=== PATIENT | female | born 1995 | race Caucasian/White ===

== ENCOUNTER 2017-01-29 06:29 | Emergency (ER) | payer BC ==
[2017-01-29 06:41] VITALS: BP 118/75; PULSE 103; TEMP 98.4; BMI 26.6
[2017-01-29] MEDS ORDERED: SODIUM CHLORIDE 1,000 ML IV STA (06:43)
[2017-01-29] MEDS ORDERED: KETOROLAC TROMETHAMINE 30 MG/1 ML VIAL IVPUSH ONE (06:44)
[2017-01-29] MEDS ORDERED: DEXAMETHASONE SOD PHOSPHATE 10 MG/1 ML VIAL IVPUSH ONE (06:44)
--- NOTE | 2017-01-29 06:55 | PDOC ---
History of Present Illness - General Chief Complaint: Sore Throat Stated Complaint: WORSENING STREP THROAT Time Seen by Provider: 01/29/17 06:34 - History of Present Illness Initial Comments: 01/29/17 06:48 21 F with h/o asthma and recurrent tonsillitis presents to ER with sore throat, worsening over 3 days. Pt states that she was seen by a doctor in urgent care initially. They did a rapid strep test that was positive and pt was started on Cefdinir yesterday. Pt states that she has taken amoxicillin in the past and did not respond to it, and this is why she was started on Cefdinir. She has taken 2 doses of the Cefdinir so far but states that her symptoms have only gotten worse. She reports worsening pain with swallowing. Denies any fevers. Denies drooling. Denies difficulty breathing. However, she has noted a change in her voice. 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 Pt denies allergy to penicillins or other medications. Past History - Past Medical History Allergies/Adverse Reactions: Allergies Allergy/AdvReac Type Severity Reaction Status Date / Time peanut Allergy Verified 01/29/17 06:43 tree nut Allergy Verified 01/29/17 06:43 Home Medications: Ambulatory Orders Albuterol Sulfate Inhaler - [Ventolin Hfa Inhaler -] 1 - 2 inh PO QID 01/29/17 Cefdinir [Omnicef -] 300 mg PO BID 01/29/17 Fluticasone Propionate [Flovent Diskus] 100 mcg IH DAILY 01/29/17 Asthma: Yes COPD: No - Immunization History Immunization Up to Date: Yes - Suicide/Smoking/Psychosocial Hx Smoking History: Never smoked Number of Cigarettes Smoked Daily: 0 Information on smoking cessation initiated: No Hx Alcohol Use: No Drug/Substance Use Hx: No Substance Use Type: None Review of Systems - Review of Systems Comments:: 01/29/17 06:52 "GENERAL/CONSTITUTIONAL: No fever or chills. No weakness. HEAD, EYES, EARS, NOSE AND THROAT: + sore throat CARDIOVASCULAR: No chest pain or shortness of breath. RESPIRATORY: No cough, wheezing, or hemoptysis. GASTROINTESTINAL: No nausea, vomiting, diarrhea or constipation. GENITOURINARY: No dysuria, frequency, or change in urination. MUSCULOSKELETAL: No joint or muscle swelling or pain. No neck or back pain. SKIN: No rash NEUROLOGIC: No headache, vertigo, loss of consciousness, or change in strength/ sensation. ENDOCRINE: No increased thirst. No abnormal weight change. HEMATOLOGIC/LYMPHATIC: No anemia, easy bleeding, or history of blood clots. ALLERGIC/IMMUNOLOGIC: No hives or skin allergy. " *Physical Exam - Vital Signs Last Vital Signs Temp Pulse Resp BP Pulse Ox 98.4 F 103 H 18 118/75 98 01/29/17 06:34 01/29/17 06:34 01/29/17 06:34 01/29/17 06:34 01/29/17 06:34 - Physical Exam Comments: 01/29/17 06:53 "GENERAL: Awake, alert, and fully oriented, in no acute distress HEAD: No signs of trauma EYES: PERRLA, EOMI, sclera anicteric, conjunctiva clear ENT: + tonsillar exudates with protrusion of bilateral tonsils, L>R, slight uvula deviation to the right, TMs normal inspection, hearing grossly normal, nares patent. NECK: + lymphadenopathy, full range of motion, no stiffness, no trismus LUNGS: Breath sounds equal, clear to auscultation bilaterally. No wheezes, and no crackles HEART: Regular rate and rhythm, normal S1 and S2, no murmurs, rubs or gallops ABDOMEN: Soft, nontender, normoactive bowel sounds. No guarding, no rebound. No masses EXTREMITIES: Normal range of motion, no edema. No clubbing or cyanosis. No cords, erythema, or tenderness NEUROLOGICAL: Cranial nerves II through XII intact. 5/5 strength and sensation in all extremities, Normal speech, normal gait SKIN: Warm, Dry, normal turgor, no rashes or lesions noted. " ED Treatment Course - LABORATORY CBC & Chemistry Diagram: 01/29/17 07:00 01/29/17 07:00 Medical Decision Making - Medical Decision Making 01/29/17 06:55 21 F with strep throat diagnosed 2 days ago, now on cefdinir x 1 day, presenting with worsening throat pain. Exam with slight uvular deviation, possibly representing peritonsillar abscess. Pt has no evidence of airway obstruction at this time, no drooling, no respiratory distress, and is non- toxic appearing. - Labs, cultures - US to evaluate for abscess - IVF, decadron, toradol - IV Unasyn 01/29/17 07:19 Pt signed out to oncoming attending at 7AM, pending labs, US of neck, and potential drainage of [employer]. *DC/Admit/Observation/Transfer Diagnosis at time of Disposition: Acute pharyngitis Qualifiers: Pharyngitis/tonsillitis etiology: unspecified etiology Qualified Code(s): J02.9 - Acute pharyngitis, unspecified - Discharge Dispostion Disposition: HOME Condition at time of disposition: Stable - Referrals - Patient Instructions Printed Discharge Instructions: DI for Pharyngitis/Tonsillopharyngitis -- Adult Additional Instructions: Arrangements have been made for you to see , ENT specialist for further evaluation and treatment immediately. Please go to his office now as directed. He will recommend further antibiotic treatment, possible continuation of steroids, and possible procedure if drainage is necessary. - Post Discharge Activity - Attestations Physician Attestion: 01/29/17 21:54 I, Dr. Saurav Bolanos MD, attest that this document has been prepared under my direction and personally reviewed by me in its entirety. I further attest, that it accurately reflects all work, treatment, procedures and medical decision -making performed by me.
[2017-01-29] MEDS ORDERED: AMPICILLIN NA/SULBACTAM NA 3 GM in SODIUM CHLORIDE 100 ML IVPB ONE (06:58)
[2017-01-29 07:13] LABS: BASOPHIL 0.4 % (0-2.0); EOSINOPHIL 0.1 % (0-4.5); MCH 29.6 pg (25.7-33.7); MCHC 33.4 g/dl (32.0-36.0); MEAN CELL VOLUME 88.8 fl (80-96); MEAN PLT VOLUME 8.2 fl (7.5-11.1); NEUTROPHILS 81.3 % (42.8-82.8); PLATELET COUNT 172 K/MM3 (134-434); RDW 12.1 % (11.6-15.6)
[2017-01-29] MEDS ORDERED: DEXAMETHASONE SOD PHOSPHATE 10 MG/1 ML VIAL ONE (07:33)
[2017-01-29] MEDS ORDERED: AMPICILLIN NA/SULBACTAM NA 3 GM VIAL ONE (07:33)
[2017-01-29] MEDS ORDERED: KETOROLAC TROMETHAMINE 15 MG/ML VIAL ONE (07:33)
[2017-01-29 07:54] LABS: ALBUMIN 4.2 g/dl (3.5-5.0); ALK PHOS 44 U/L (32-92); ANION GAP 9 (8-16); BILIRUBIN,TOTAL 0.9 mg/dl (0.2-1.0); CALCIUM 9.3 mg/dl (8.4-10.2); CO2 24 mmol/L (22-28); CREATININE 0.8 mg/dl (0.6-1.3); GLUCOSE,RANDOM 95 mg/dl (74-106); SGOT/AST 32 U/L (10-42); SGPT/ALT 27 U/L (10-40); TOT PROT 7.6 g/dl (6.4-8.3)
--- NOTE | 2017-01-29 08:35 | PDOC ---
*Physical Exam - Vital Signs Last Vital Signs Temp Pulse Resp BP Pulse Ox 98.4 F 103 H 18 118/75 98 01/29/17 06:34 01/29/17 06:34 01/29/17 06:34 01/29/17 06:34 01/29/17 06:34 - Physical Exam Comments: 01/29/17 08:33 Informed that ultrasound does not perform this type of an examination. The CT machine is not functional at present. , ENT specialist, was contacted by phone. He will see the patient now in his office. The parents are furnished with the office address and phone number and agreed to transport the patient there immediately. She is completely stable, no sign of airway obstruction. No difficulty breathing or swallowing. Feels much better post administration of medication. Fully ambulatory and in no respiratory or other distress upon discharge with her parents to proceed immediately to see the ENT specialist at his office as directed. ED Treatment Course - LABORATORY CBC & Chemistry Diagram: 01/29/17 07:00 01/29/17 07:00 - ADDITIONAL ORDERS Additional order review: Laboratory Results 01/29/17 07:00 Sodium 136 Potassium 3.7 Chloride 103 Carbon Dioxide 24 Anion Gap 9 BUN 7 Creatinine 0.8 Creat Clearance w eGFR > 60 Random Glucose 95 Calcium 9.3 Total Bilirubin 0.9 AST 32 ALT 27 Alkaline Phosphatase 44 Total Protein 7.6 Albumin 4.2 01/29/17 07:43 Group A Strep Rapid Antigen - Final Throat NEGATIVE FOR THE ANTIGEN OF BETA HEMOLYTIC STREP GROUP A 01/29/17 07:00 RBC 4.59 MCV 88.8 MCHC 33.4 RDW 12.1 MPV 8.2 Neutrophils % 81.3 Lymphocytes % 8.8 Monocytes % 9.4 Eosinophils % 0.1 Basophils % 0.4 - Medications Given in the ED: ED Medications Discontinued Medications Generic Name Dose Route Start Last Admin Trade Name Freq PRN Reason Stop Dose Admin Dexamethasone Sodium Phosphate 10 mg 01/29/17 06:44 01/29/17 07:41 Decadron Injection - IVPUSH 01/29/17 06:45 10 mg ONCE ONE Administration Sodium Chloride 1,000 mls @ 1,000 mls/hr 01/29/17 06:43 01/29/17 07:41 Normal Saline - IV 01/29/17 07:42 1,000 mls/hr ASDIR STA Administration Ampicillin Sodium/Sulbactam 100 mls @ 200 mls/hr 01/29/17 06:58 01/29/17 07: 42 Sodium 3 gm/ Sodium Chloride IVPB 01/29/17 07:27 200 mls/hr ONCE ONE Administration Ketorolac Tromethamine 15 mg 01/29/17 06:44 01/29/17 07:41 Toradol Injection - IVPUSH 01/29/17 06:45 15 mg ONCE ONE Administration *DC/Admit/Observation/Transfer Diagnosis at time of Disposition: Acute pharyngitis Qualifiers: Pharyngitis/tonsillitis etiology: unspecified etiology Qualified Code(s): J02.9 - Acute pharyngitis, unspecified - Discharge Dispostion Disposition: HOME Condition at time of disposition: Stable Admit: No - Referrals - Patient Instructions Printed Discharge Instructions: DI for Pharyngitis/Tonsillopharyngitis -- Adult Additional Instructions: Arrangements have been made for you to see , ENT specialist for further evaluation and treatment immediately. Please go to his office now as directed. He will recommend further antibiotic treatment, possible continuation of steroids, and possible procedure if drainage is necessary. - Post Discharge Activity
== END 2017-01-29 08:52 | disposition home or self-care (01) ==
LOC: FER 06:29
PROC: 3E03329 Introduction of Other Anti-infective into Peripheral Vein, Percutaneous Approach (ICD-10-PCS; principal; 2017-01-29)
PROC: 3E0333Z Introduction of Anti-inflammatory into Peripheral Vein, Percutaneous Approach (ICD-10-PCS; 2017-01-29)
PROC: 3E033GC Introduction of Other Therapeutic Substance into Peripheral Vein, Percutaneous Approach (ICD-10-PCS; 2017-01-29)
PROC: 3E0337Z Introduction of Electrolytic and Water Balance Substance into Peripheral Vein, Percutaneous Approach (ICD-10-PCS; 2017-01-29)
DX: J02.9 Acute pharyngitis, unspecified (principal); J45.909 Unspecified asthma, uncomplicated; Z91.010 Allergy to peanuts
CPT/HCPCS: 36415; 80053; 85025; 87040; 87070; 87077; 87430; 99281-25

== ENCOUNTER 2018-12-03 07:47 | Emergency (ER) | payer BC ==
--- NOTE | 2018-12-03 08:00 | PDOC ---
History of Present Illness - General Chief Complaint: Respiratory Stated Complaint: PERSISTANT COUGH TIGHTNESS TO THROAT AND CHEST Time Seen by Provider: 12/03/18 07:58 - History of Present Illness Initial Comments: 12/03/18 08:19 Complaint: Cough History of present illness: Asthmatic since 2 years of age, symptoms primarily consist of cough and congestion. Increased cough, dry, with sensation of mucus plugging for several days. On Advair, pro-air, Medrol Dosepak, and azithromycin. Improves transiently, symptoms recur. Review of systems: No sore throat, earache, chest pain, shortness of breath, fever, or purulent sputum. Has nebulizer at home but no nebulizer solution. Past medical history: Asthma, as noted above. Increased number of attacks this past year, with one visit to the emergency room. No overnight hospitalizations or intubations. Frequent short courses of oral steroids. Social history: Lives in [facility], visiting family, denies tobacco alcohol or nonprescription drugs. Fully active without disability Family history: Significant for asthma. No early coronary artery disease, other cardiac or lung disease, diabetes or cancer Physical exam: Alert and oriented well-developed well-nourished no acute distress cooperative Afebrile, vital signs stable including normal respiratory rate and adequate oxygen saturation HEENT: Mild nasal congestion, watery discharge, ears and throat clear Neck supple without bruit mass or nodes Lungs clear to P&A with full breath sounds bilaterally. No wheezes rales or rhonchi. Respiratory rate 12 and unlabored. Oxygen saturation 99% room air CV regular without murmur rub or gallop pulses full and symmetric no JVD or edema no bruits Abdomen benign Neurological intact Extremities no CCE Skin clear, no rash, adequate turgor and wet mucous membranes Impression: Asthma, acute viral bronchitis, treatment already begun with steroids and antibiotics. Needs home nebulizer solutions Plan: Refill albuterol ampules for nebulizer. Prednisone prescribed [address] of Medrol Dosepak. To continue until symptoms improve and then taper as directed. No distress upon discharge with mother. Return to ER if symptoms worse. Past History - Past Medical History Allergies/Adverse Reactions: Allergies Allergy/AdvReac Type Severity Reaction Status Date / Time tree nut Allergy Intermediate Verified 12/03/18 07:49 peanut Allergy Verified 12/03/18 07:50 Home Medications: Ambulatory Orders Albuterol 0.083% Nebulizer Roma [Ventolin 0.083% Nebulizer Soln -] 1 amp NEB Q4H PRN #1 box 12/03/18 Albuterol Sulfate [Proair Hfa] 2 inh IN PRN 12/03/18 Azithromycin [Zithromax 250mg Tablets -] 1 tab PO DAILY 12/03/18 Budesonide [Rhinocort Allergy] 2 spray NS DAILY 12/03/18 Fluticasone/Salmeterol [Advair Hfa 230-21 Mcg Inhaler] 2 inh PO BID 12/03/18 predniSONE [Deltasone -] 40 mg PO DAILY #40 tablet 12/03/18 Asthma: Yes COPD: No - Immunization History Immunization Up to Date: Yes - Psycho Social/Smoking Cessation Hx Smoking History: Never smoked Number of Cigarettes Smoked Daily: 0 Hx Alcohol Use: No Drug/Substance Use Hx: No Substance Use Type: None Discharge - Discharge Information Problems reviewed: Yes Clinical Impression/Diagnosis: Asthmatic bronchitis Qualifiers: Asthma severity: moderate Asthma complication type: with acute exacerbation Condition: Improved Disposition: HOME - Admission No - Additional Discharge Information Prescriptions: Albuterol 0.083% Nebulizer Roma [Ventolin 0.083% Nebulizer Soln -] 1 amp NEB Q4H PRN #1 box PRN Reason: Dyspnea predniSONE [Deltasone -] 40 mg PO DAILY #40 tablet - Follow up/Referral - Patient Discharge Instructions Patient Printed Discharge Instructions: DI for Asthma -- Adult, DI for Acute Bronchitis Additional Instructions: Medication as prescribed. Maintain hydration and good nutrition. Avoid smoke and environmental pollutants. Return to ER immediately if condition worsens, especially if there is chest pain , shortness of breath, or fever. Otherwise follow-up primary physician. - Post Discharge Activity
[2018-12-03 08:07] VITALS: BP 127/54; PULSE 86; TEMP 98.1; BMI 26.9
[2018-12-03] MEDS ORDERED: ALBUTEROL SO4 0.083% IH SOL 2.5 MG/3 ML VIAL.NEB. NEB ONE ×2 (08:10→08:25)
== END 2018-12-03 08:37 | disposition home or self-care (01) ==
LOC: FER 07:47
PROC: 3E0F7GC Introduction of Other Therapeutic Substance into Respiratory Tract, Via Natural or Artificial Opening (ICD-10-PCS; principal; 2018-12-03)
DX: J45.901 Unspecified asthma with (acute) exacerbation (principal); Z91.018 Allergy to other foods; Z91.010 Allergy to peanuts
CPT/HCPCS: 99282-25

== ENCOUNTER 2020-05-25 17:14 | Emergency (ER) | payer BC ==
[2020-05-25 17:23] VITALS: BP 115/81; PULSE 96; TEMP 99; BMI 25.7
[2020-05-25] MEDS ORDERED: SODIUM CHLORIDE 1,000 ML IV STA (17:31)
[2020-05-25] MEDS ORDERED: ACETAMINOPHEN 1000 MG/100 ML VIAL (NON FORMULARY) IVPB ONE (17:31)
[2020-05-25] MEDS ORDERED: ACETAMINOPHEN INJECTION 100 ML IVPB ONE (17:37)
[2020-05-25 18:01] LABS: EOS % 0.8 % (0-4.5); HEMATOCRIT 34.6 % (32.4-45.2); HEMOGLOBIN 11.6 GM/dl (10.7-15.3); MCH 28.7 pg (25.7-33.7); MEAN PLT VOLUME 7.9 fl (7.5-11.1)
[2020-05-25 18:04] LABS: BASO % 0.8 % (0-2.0); LYMPH % 21.1 % (8-40); MCHC 33.5 g/dl (32.0-36.0); MEAN CELL VOLUME 85.8 fl (80-96); MONO % 10.3 % (3.8-10.2); PLATELET COUNT 230 K/MM3 (134-434); RBC 4.03 M/mm3 (3.60-5.2); RDW 12.9 % (11.6-15.6); WHITE BLOOD COUNT 7.2 K/mm3 (4.0-10.8)
[2020-05-25 18:09] LABS: ALBUMIN 3.8 g/dl (3.4-5.0); BILIRUBIN,TOTAL 0.4 mg/dl (0.2-1); CREATININE 0.7 mg/dl (0.55-1.3); POTASSIUM 3.7 mmol/L (3.5-5.1); TOT PROT 7.3 g/dl (6.4-8.2)
== END 2020-05-25 22:31 | disposition home or self-care (01) ==
LOC: FER 17:14
PROC: 3E033NZ Introduction of Analgesics, Hypnotics, Sedatives into Peripheral Vein, Percutaneous Approach (ICD-10-PCS; principal; 2020-05-25)
PROC: 3E0337Z Introduction of Electrolytic and Water Balance Substance into Peripheral Vein, Percutaneous Approach (ICD-10-PCS; 2020-05-25)
DX: R10.31 Right lower quadrant pain (principal)
CPT/HCPCS: 36415; 74177-TC; 80053; 81003; 84703; 85025; 87086; 99285-25; J0131; Q9967

== ENCOUNTER 2021-03-09 14:25 | Emergency (ER) | payer BC ==
[2021-03-09 15:34] VITALS: BP 125/81; PULSE 98; TEMP 98.8; BMI 25.7
[2021-03-11 07:06] LABS: SARS-CoV-2 NAA Detected (Not Detected)
== END 2021-03-09 16:27 | disposition home or self-care (01) ==
LOC: FER 14:25
DX: J06.9 Acute upper respiratory infection, unspecified (principal)
CPT/HCPCS: 71045-TC-FY; 99284-25; C9803; U0003; U0005